=== PATIENT | female | born 1960 | race Caucasian/White ===

== ENCOUNTER 2019-07-03 09:44 | Day surgery (SDC) | payer BC ==
[~2019-07-03] VITALS: Ht 160 cm; Wt 66.2 kg
[2019-07-03] MEDS ORDERED: CEFAZOLIN 2 GM IVPB PREMIX 50 ML IV ONE (10:15)
[2019-07-03] MEDS ORDERED: IOHEXOL 50 ML IV ONE (14:13)
[2019-07-03] MEDS ORDERED: MORPHINE 4 MG/ML INJ. SYRINGE ONE ×2 (14:47→15:26)
[2019-07-03] MEDS ORDERED: LR 1,000 ML IV SCH (14:48)
[2019-07-03] MEDS ORDERED: METOCLOPRAMIDE HCL 10 MG/2 ML VIAL IVP PRN (15:00)
[2019-07-03] MEDS ORDERED: MORPHINE 4 MG/ML INJ. SYRINGE IVP PRN ×4 (15:00)
[2019-07-03] MEDS ORDERED: ONDANSETRON HCL 4 MG/2 ML VIAL IVP PRN ×2 (15:00)
[2019-07-03] MEDS ORDERED: ACETAMINOPHEN/CODEINE 300 MG-30 MG TABLET PO PRN (15:00)
[2019-07-03] MEDS ORDERED: NALOXONE HCL 0.4 MG/ML AMP (NARCAN) IVP PRN (15:00)
[2019-07-03] MEDS ORDERED: ONDANSETRON HCL 4 MG/2 ML VIAL ONE (15:51)
[2019-07-03 16:22] VITALS: BP_SYST 114
[2019-07-03] MEDS ORDERED: ACETAMINOPHEN/CODEINE 300 MG-30 MG TABLET ONE (16:33)
== END 2019-07-03 17:29 | disposition home or self-care (01) ==
LOC: SDS 09:44 → SMU 09:45 → SDS 17:29
PROVIDERS: ATTEND Surgery
DX: K80.10 Calculus of gallbladder with chronic cholecystitis without obstruction (principal); K83.8 Other specified diseases of biliary tract
CPT/HCPCS: 47563; 74300; 88304; C1727; J0690; J2270; J2405; J7120; Q9967

== ENCOUNTER 2019-08-27 09:07 | Day surgery (SDC) | payer BC ==
[~2019-08-27] VITALS: Ht 157.5 cm; Wt 66.7 kg
[2019-08-27] MEDS ORDERED: LR 1,000 ML IV SCH (11:52)
[2019-08-27] MEDS ORDERED: METOCLOPRAMIDE HCL 10 MG/2 ML VIAL IVP PRN (12:00)
[2019-08-27] MEDS ORDERED: MORPHINE 4 MG/ML INJ. SYRINGE IVP PRN ×2 (12:00)
[2019-08-27] MEDS ORDERED: BUPIVACAINE /EPINEPHRINE/PF 0.5% 30 ML VIAL INJ ONE (12:15)
[2019-08-27] MEDS ORDERED: NS IRRIG SOLN 1000 ML IR ONE (12:15)
[2019-08-27] MEDS ORDERED: PROPOFOL 200MG/ 20ML VIAL (DIPRIVAN) IV ONE (12:15)
[2019-08-27] MEDS ORDERED: NEOSTIGMINE METHYLSULFATE 1 MG/ML, 10 ML VIAL ONE (12:15)
[2019-08-27] MEDS ORDERED: ROCURONIUM BROMIDE 10 MG/ML (ZEMURON) ONE (12:15)
[2019-08-27] MEDS ORDERED: LR 1,000 ML IV.SOLN IV ONE (12:15)
[2019-08-27] MEDS ORDERED: ONDANSETRON HCL 4 MG/2 ML VIAL ONE (12:15)
[2019-08-27] MEDS ORDERED: fentaNYL CITRATE 250 MCG/5 ML AMP ONE (12:15)
[2019-08-27] MEDS ORDERED: MIDAZOLAM HCL 5 MG/ML VIAL (VERSED) IV ONE (12:15)
[2019-08-27] MEDS ORDERED: SEVOFLURANE 15 MIN GAS INH ONE (12:15)
[2019-08-27] MEDS ORDERED: GLYCOPYRROLATE 0.2 MG/ML VIAL ONE (12:15)
[2019-08-27] MEDS: MORPHINE 4 MG/ML INJ. SYRINGE IVP PRN ×2 (12:30→12:40)
[2019-08-27] MEDS ORDERED: MORPHINE 4 MG/ML INJ. SYRINGE ONE (12:42)
[2019-08-27 14:03] VITALS: BP_SYST 122
== END 2019-08-27 15:25 | disposition home or self-care (01) ==
LOC: SDS 09:07 → SMU 09:07 → SDS 15:25
PROVIDERS: ATTEND Obstetrics & Gynecology
DX: N83.201 Unspecified ovarian cyst, right side (principal)
CPT/HCPCS: 58661; C1727; J2250; J2270; J2405; J2704; J2710; J3010; J3490 ×2; J7120